=== PATIENT | female | born 1955 | race American Indian/Alaskan Native ===

== ENCOUNTER 2018-04-19 09:44 | Outpatient (CLI) | payer MEDICARE | END 2018-04-19 09:45 | disposition home or self-care (01) | LOC: WOUND 09:44 | PROVIDERS: ATTEND Surgery | DX: T81.89XD Other complications of procedures, not elsewhere classified, subsequent encounter (principal); E11.9 Type 2 diabetes mellitus without complications; I10 Essential (primary) hypertension; Z90.710 Acquired absence of both cervix and uterus; Z98.49 Cataract extraction status, unspecified eye; Y83.8 Other surgical procedures as the cause of abnormal reaction of the patient, or of later complication, without mention of misadventure at the time of the procedure ==

== ENCOUNTER 2018-04-26 09:42 | Outpatient (CLI) | payer MEDICARE | END 2018-04-26 09:43 | disposition home or self-care (01) | LOC: WOUND 09:42 ==

== ENCOUNTER 2018-05-03 09:54 | Outpatient (CLI) | payer MEDICARE ==
[2018-05-03] MEDS ORDERED: XYLOCAINE 1% 20 mL INFILTRATI ONE (10:45)
== END 2018-05-03 09:55 | disposition home or self-care (01) ==
LOC: WOUND 09:54
PROVIDERS: ATTEND Surgery
DX: T81.89XD Other complications of procedures, not elsewhere classified, subsequent encounter (principal); E11.622 Type 2 diabetes mellitus with other skin ulcer; L98.491 Non-pressure chronic ulcer of skin of other sites limited to breakdown of skin; I10 Essential (primary) hypertension; Z90.710 Acquired absence of both cervix and uterus; Z98.49 Cataract extraction status, unspecified eye; Y83.8 Other surgical procedures as the cause of abnormal reaction of the patient, or of later complication, without mention of misadventure at the time of the procedure
CPT/HCPCS: 10060

== ENCOUNTER 2018-05-10 10:01 | Outpatient (CLI) | payer MEDICARE | END 2018-05-10 10:02 | disposition home or self-care (01) | LOC: WOUND 10:01 | CPT/HCPCS: 99214; G0463 ==

== ENCOUNTER 2018-06-07 13:09 | Outpatient (CLI) | payer MEDICARE ==
[2018-06-07] MEDS ORDERED: XYLOCAINE TOPICAL 4% TP ONE (13:35)
[2018-06-07] MEDS ORDERED: SILVER NITRATE TP ONE (14:08)
== END 2018-06-07 13:10 | disposition home or self-care (01) ==
LOC: WOUND 13:09
PROVIDERS: ATTEND Surgery
DX: T81.89XD Other complications of procedures, not elsewhere classified, subsequent encounter (principal); E11.622 Type 2 diabetes mellitus with other skin ulcer; L98.491 Non-pressure chronic ulcer of skin of other sites limited to breakdown of skin; L02.211 Cutaneous abscess of abdominal wall; I10 Essential (primary) hypertension; Y83.8 Other surgical procedures as the cause of abnormal reaction of the patient, or of later complication, without mention of misadventure at the time of the procedure
CPT/HCPCS: 17250